=== PATIENT | female | born 1985 | race Two or more races ===

== ENCOUNTER 2024-08-12 12:04 | Emergency (ER) | payer OTHER ==
[~2024-08-12] VITALS: Ht 157.5 cm; Wt 74.2 kg
--- NOTE | 2024-08-12 12:20 | ED.PDOC ---
History of Present Illness HPI Comments 39-year-old female with PMHx Fibromyalgia, DDD presents with a chief complaint of ear pain and dizziness x 4 days. Patient states that she has pain and lack of hearing to her left ear. Patient mentions that she was recently swimming. Patient also reports that she has been feeling unsteady on her feet. Patient reports feeling nausea from the dizziness. Patient denies any falls, injuries or trauma. Time Seen by MD: 12:11 Reviewed Notes: Nurses Notes, Medications, Allergies Allergies: Coded Allergies: Acetaminophen (Verified Allergy, Unknown, 08/12/24) Hydrocodone (Verified Allergy, Unknown, 08/12/24) Home Meds Active Scripts Plwzcccm-Smctaulxp-Yy (Otic) (Cortisporin Otic Susp) [address], 2 DROP LEFT EAR TID, #5 ML Prov:IZA JUARES MD 08/12/24 Sulfamethoxazole-Trimethoprim (Bactrim) 1 Tab Tab, 1 TAB PO BID, #14 TAB Prov:IZA JUARES MD 08/12/24 Ondansetron Odt 4MG Tab (ZOFRAN PO) 4 Mg Tb, 4 MG PO Q8HP PRN for 5 Days, #15 TAB ODT TAB-DISSOLVE IN MOUTH, THEN SWALLOW Prov:IZA JUARES MD 08/12/24 Information Source: Patient Mode of Arrival: Ambulatory Severity: Moderate Timing: Days Duration: Since onset Prehospital treatment: None Past Medical History Past Medical History (Other): FM, DDD Surgical History: Denies all surgeries TELEPHONE STATION REPAIRER History: Denies all TELEPHONE STATION REPAIRER Hx Family History Family History: Reviewed,noncontributory to illness Social History Smoker: Non-Smoker Alcohol: Rarely Drugs: Marijuana Lives In: Home Constitutional: denies: chills, diaphoresis, fatigue, fever, malaise, sweats, weakness, others EENTM: reports: ear pain; denies: blurred vision, double vision, ear bleeding, ear discharge, ear drainage, ear ringing, eye pain, eye redness, hearing loss, mouth pain, mouth swelling, nasal discharge, nose bleeding, nose congestion, nose pain, photophobia, tearing, throat pain, throat swelling, voice changes, others Respiratory: denies: cough, hemoptysis, orthopnea, SOB at rest, shortness of breath, SOB with excertion, stridor, wheezing, others Cardiovascular: denies: chest pain, dizzy spells, diaphoresis, Dyspnea on exertion, edema, irregular heart beat, left arm pain, lightheadedness, palpitations, PND, syncope, others Gastrointestinal: denies: abdomen distended, abdominal pain, blood streaked bowels, constipated, diarrhea, dysphagia, difficulty swallowing, hematemesis, melena, nausea, poor appetite, poor fluid intake, rectal bleeding, rectal pain, vomiting, others Genitourinary: denies: abnormal vagina bleeding, burning, dyspareunia, dysuria, flank pain, frequency, hematuria, incontinence, pain, , vagina discharge, urgency, others Neurological: reports: dizziness; denies: fainting, headache, left sided numbness, left sided weakness, numbness, paresthesia, pre-existing deficit, right sided numbness, right sided weakness, seizure, speech problems, tingling, tremors, weakness, others Musculoskeletal: denies: back pain, gout, joint pain, joint swelling, muscle pain, muscle stiffness, neck pain, others Integumetry: denies: bruises, change in color, change in hair/nails, dryness, laceration, lesions, lumps, rash, wounds, others Allergic/Immunocompromised: denies: Difficulty Healing, Frequent Infections, Hives, Itching, others Hematologic/Lymphatic: denies: anemia, blood clots, easy bleeding, easy bruising, swollen glands, others Endocrine: denies: excessive hunger, excessive sweating, excessive thirst, excessive urination, flushing, intolerance to cold, intolerance to heat, unexplained weight gain, unexplained weight loss, others Psychiatric: denies: anxiety, bipolar disorder, depression, hopeless, panic disorder, schizophrenia, sleepless, suicidal, others All Other Systems: Reviewed and Negative Physical Exam General Appearance: No Apparent Distress HEENT: Pharynx Normal, Other (Left ear with a swollen canal and some redness) Neck: Full Range of Motion, Non-Tender, Normal, Normal Inspection Respiratory: Chest Non-Tender, Lungs Clear, No Accessory Muscle Use, No Respiratory Distress, Normal Breath Sounds Cardiovascular: No Edema, No JVD, No Murmur, No Gallop, Normal Peripheral Pulses, Regular Rate/Rhythm Breast Exam: Deferred Gastrointestinal: No Organomegaly, Non Tender, No Pulsatile Mass, Normal Bowel Sounds, Soft Genitalia: Deferred Pelvic: Deferred Rectal: Deferred Extremities: No calf tenderness, Normal capillary refill, Normal inspection, Normal range of motion, Non-tender, No pedal edema Musculoskeletal : Apperance: Normal Neurologic: Alert, manager of data II-XII nml as Tested, No Motor Deficits, Normal Affect, Normal Mood, No Sensory Deficits Cerebellar Function: Normal Reflexes: Normal Skin: Dry, Normal Color, Warm Lymphatic: No Adenopathy Was a procedure done? Was a procedure done?: No Differential Dx Considerations may include: Otitis externa, otitis media, vertigo X-Ray, Labs, Meds, VS Vital Signs Date Time Temp Pulse Resp B/P (MAP) Pulse Ox O2 Delivery O2 Flow Rate FiO2 08/12/24 12:22 99.7 16 20 134/98 (110) 96 99.7 The patient was given Zofran here in the emergency department's The patient was also given a prescription of Cortisporin otic suspension as well as Bactrim The patient is being discharged The patient will follow up with the primary care doctor The patient will return to the emergency department's the condition worsens. Time of 1ST Reevaluation: 12:41 Reevaluation 1ST: Unchanged Patient Education/Counseling: Diagnosis, Treatment, Prognosis, Need For Follow Up Family Education/Counseling: No Family Present Departure 1 Departure Time of Disposition: 12:29 Impression: Primary Impression: Otitis externa Qualified Codes: H60.332 - Swimmer's ear, left ear Additional Impression: Dizziness Disposition: 01 HOME / SELF CARE / HOMELESS Condition: Fair e-Prescriptions Nhojyuhz-Gvgcrhbrk-Ky (Otic) (Cortisporin Otic Susp) [address] 2 DROP LEFT EAR TID, #5 ML Prov: IZA JUARES MD 08/12/24 Sulfamethoxazole-Trimethoprim (Bactrim) 1 Tab Tab 1 TAB PO BID, #14 TAB Prov: IZA JUARES MD 08/12/24 Ondansetron Odt 4MG Tab (ZOFRAN PO) 4 Mg Tb 4 MG PO Q8HP PRN for 5 Days, #15 TAB ODT TAB-DISSOLVE IN MOUTH, THEN SWALLOW Prov: IZA JUARES MD 08/12/24 Discharged With: Self Critical Care Note Critical Care Time?: No Stability Stability form required: No Heart Score Heart Score: Heart Score Response (Comments) Value History N/A 0 EKG N/A 0 Age N/A 0 Risk Factors N/A 0 Troponin N/A 0 Total 0 I personally scribed for IZA JUARES MD ([email or web address]) on 08/12/24 at 12:20. Electronically submitted by Noah Norris ([email or web address]). IZA JUARES MD Aug 12, 2024 12:20
[2024-08-12] MEDS ORDERED: SULF400T11 PO (12:27)
[2024-08-12] MEDS ORDERED: ZOFR4T PO (12:27)
[2024-08-12] MEDS ORDERED: COROSUS LEFT EAR (12:28)
[2024-08-12] MEDS: ONDANSETRON ODT 4 MG TAB PO ONE (12:39)
[2024-08-12 12:40] VITALS: BP 136/97; PULSE 85; RESP 16; TEMP 97.7; O2SAT 99
[2024-08-12] MEDS ORDERED: MECL25CH85 PO (12:50)
[2024-08-12] MEDS: MECLIZINE HCL 25 MG TAB PO ONE (13:00)
[2024-08-12] MEDS: NEOMYCIN-POLYM-HC 1% OTIC(EAR) SOLN 10ML LEFT EAR ONE (13:03)
== END 2024-08-12 13:05 | disposition home or self-care (01) ==
LOC: ER 12:04
DX: H60.92 Unspecified otitis externa, left ear (principal); R42 Dizziness and giddiness; M79.7 Fibromyalgia; F12.90 Cannabis use, unspecified, uncomplicated; Z88.5 Allergy status to narcotic agent; Z88.1 Allergy status to other antibiotic agents
CPT/HCPCS: 99284; J8597; Q0162